=== PATIENT | male | born 1975 | race Caucasian/White ===

== ENCOUNTER 2023-09-04 11:15 | Emergency (ER) | payer SELFPAY ==
[2023-09-04] VITALS (31 sets, daily range): BP systolic 137–171; BP diastolic 88–101; PULSE 78–105; RESP 15–24; TEMP 36.7–36.9; O2SAT 93–100
--- NOTE | ~2023-09-04 | XR_ITS ---
EXAMINATION: XR chest 1V portable INDICATION: Chest pain TECHNIQUE: Portable AP chest at 1327 hours COMPARISON: None available FINDINGS: The lungs are free of acute opacities. No pleural effusion or pneumothorax. The cardiomedia stinal silhouette is normal. There are partially imaged surgical changes in the lower cervical spine. IMPRESSION: 1. No acute cardiopulmonary abnormality. Reviewed, dictated and finalized at location B. ING WHEEL OPERATOR HELPER
[2023-09-04 11:53] LABS: Basophils Percent Auto 0.6 % (0.2-1.2); Eosinophils Absolute Auto 0.6 K/mm3 (0-0.3); Hematocrit 38.3 % (42.0-52.0); Immature Granulocyte Absolute 0.04 K/mm3 (0.00-0.031); Immature Granulocyte Percent A 0.6 % (0-0.5); Lymphocytes Absolute Auto 0.56 K/mm3 (0.9-3.2); Lymphocytes Percent Auto 8.4 % (18.3-44.2); Mean Corpuscular HGB Conc 33.9 g/dl (32-36); Mean Corpuscular Hemoglobin 33.9 pg (26-34); Monocytes Absolute Auto 0.8 K/mm3 (0.1-0.6); Monocytes Percent Auto 11.4 % (2.6-8.5); Neutrophils Absolute Auto 4.7 K/mm3 (1.3-6.7); Platelet Count Result 152 k/mm3 (150-375); Red Blood Count 3.83 M/mm3 (4.6-6.20); Red Cell Distribution Width 12.3 % (11.5-14.5); White Blood Count 6.7 K/mm3 (4.5-10.0)
[2023-09-04 12:00] LABS: Appearance Urine Clear (Clear); Bacteria Urine None Seen /hpf; Bilirubin Urine Negative (Negative); Blood Urine 1+ (Negative); Color Urine Yellow (Yellow); Glucose Urine UA Negative (Negative); Ketones Urine 4+ mg/dL (Negative); Leukocyte Esterase Ur Negative LEU/UL (Negative); Nitrate Urine Negative (Negative); Non Pathogenic Casts 0-2; Protein Urine 2+ mg/dL (Negative); RBC Urine 0-2 /hpf (0-2); Specific Grav Ur 1.019 (1.001-1.035); Squamous Epithelial Cell Urine None seen /hpf (Few); WBC Urine 0-5 /hpf
[2023-09-04 12:09] LABS: Amphetamine Screen Urine Negative (Negative); Barbiturate Screen Urine Negative (Negative); Benzodiazepines Screen Urine Negative (Negative); Cannabinoid Screen Urine Negative (Negative); Cocaine Screen Urine Negative (Negative); Methadone Screen Urine Negative (Negative); Opiate Screen Urine Negative (Negative); Phencyclidine Screen Urine Negative (Negative)
[2023-09-04 12:10] LABS: Ethanol < 10 mg/dL (<10)
[2023-09-04 12:11] LABS: Add Urine Microscopic? YES
[2023-09-04 12:16] LABS: Albumin Level 5.3 g/dL (3.5-5.1); Alkaline Phosphatase 70 U/L (38-126); Anion Gap 24 mmol/L (8-16); Aspartate Amino Transferase 145 U/L (17-59); Bilirubin,Total 1.2 mg/dL (0.2-1.3); Blood Urea Nitrogen 5 mg/dL (9-20); Calcium 9.5 mg/dL (8.4-10.2); Carbon Dioxide 10 mmol/L (22-30); Chloride 98 mmol/L (98-107); Estimated CRCL calculation 120 ml/min; Estimated Glomerular Filt Rate > 60; Glucose 131 mg/dL (65-110); Potassium 3.6 mmol/L (3.4-5.0); Sodium 132 mmol/L (137-145)
[2023-09-04 12:17] LABS: Platelet Estimate Adequate (Adequate); Schistocytes None Seen (NORMAL)
[2023-09-04 12:40] LABS: Alanine Aminotransferase 62 U/L (6-50)
--- NOTE | 2023-09-04 13:11 | ECG_ITS ---
Measurements Intervals [place] Rate: 78 P: 68 MT: 164 QRS: 60 QRSD: 93 T: 51 QT: 385 QTc: 440 Interpretive Statements SINUS RHYTHM MODERATE VOLTAGE CRITERIA FOR LVH, CONSIDER NORMAL VARIANT [MEETS CRITERIA IN ONE OF: R(aVL), S(V1), R(V5), R(V5/V6)+S(V1)] BORDERLINE ECG NO PREVIOUS ECG AVAILABLE FOR COMPARISON Electronically Signed On 09-04-2023 18:32:19 [employer]UMENT CARVER by Pee Alvarado M.D.
--- NOTE | 2023-09-04 13:12 | ED.GENADULT ---
HPI - General Adult General Chief complaint: Unspecified Stated complaint: sick x months , ?ETOH/chest pain Time Seen by Provider: 09/04/23 12:00 History of Present Illness HPI narrative: Patient is a 48-year-old male presenting with chest pain. States that he developed central chest pain that he states felt pressure-like yesterday. States that he was just sitting on his couch. States that it has since gone away but he was concerned so he came in for evaluation. No shortness of breath, lightheadedness, leg swelling, diaphoresis. States that he does drink daily and his last drink was last night. He feels anxious and a little bit trembly. No nausea or vomiting. No infectious symptoms. No further complaints. Currently denies any pain. Related Data Allergies Allergy/AdvReac Type Severity Reaction Status Date / Time No Known Allergies Allergy Verified 09/04/23 11:28 Review of Systems Review of Systems: All systems reviewed & are unremarkable except as noted in HPI and below Exam Narrative: GENERAL: unkempt, nontoxic, no acute distress, pleasant cooperative, mildly tremulous HEAD: Normocephalic, atraumatic. EYES: PERRLA and EOMI. ENT: grossly unremarkable NECK: Supple. CHEST: Clear to auscultation. No respiratory distress. HEART: Regular rate and rhythm. No murmur heard. Normal peripheral pulses. ABDOMEN: Soft, nontender, nondistended EXTREMITIES: Normal range of motion. No edema. SKIN: Warm, dry, no rash. NEURO: No focal deficits. Alert and oriented x3. PSYCH: Normal mood and affect. Course Vital Signs Vital signs: Vital Signs Temperature 98.4 F 09/04/23 11:23 Pulse Rate 105 H 09/04/23 11:23 Respiratory Rate 24 H 09/04/23 11:23 Blood Pressure 171/96 H 09/04/23 11:23 Pulse Oximetry 97 09/04/23 11:23 Oxygen Delivery Room Air 09/04/23 11:23 Temperature 98.0 F 09/04/23 18:09 Pulse Rate 87 09/04/23 18:09 Respiratory Rate 20 09/04/23 18:09 Blood Pressure 152/92 H 09/04/23 18:09 Pulse Oximetry 97 09/04/23 18:09 Oxygen Delivery Room Air 09/04/23 11:23 Medical Decision Making MDM Narrative Medical decision making narrative: 48-year-old male presenting with chest pain since yesterday that has since resolved. Patient initially hypertensive and a bit tachycardic but this improved by the time I saw him. He is a bit tremulous on exam. Will give some fluids, Ativan, Librium. He denies any chest pain currently. EKG per my interpretation shows normal sinus rhythm, no ST elevations or depressions. Chest x-ray without acute findings. Troponins within normal limits x2. Blood work without significant abnormality. Patient continues to deny any chest pain or shortness of breath. Patient feeling improved following Librium. He feels comfortable going home. Will send in for a Librium taper advised following up with chestnut and PCP. Appropriate return precautions given. Patient is agreeable with this plan. Discharged in stable condition. Differential Diagnosis Differential Diagnosis: Chest pain, alcohol withdrawal, alcohol use disorder Medical Records Medical records reviewed: Yes I reviewed the external patient's medical records. Vital Signs Vital Signs: Vital Signs Temperature 98.4 F 09/04/23 11:23 Pulse Rate 105 H 09/04/23 11:23 Respiratory Rate 24 H 09/04/23 11:23 Blood Pressure 171/96 H 09/04/23 11:23 Pulse Oximetry 97 09/04/23 11:23 Oxygen Delivery Room Air 09/04/23 11:23 Temperature 98.0 F 09/04/23 18:09 Pulse Rate 87 09/04/23 18:09 Respiratory Rate 20 09/04/23 18:09 Blood Pressure 152/92 H 09/04/23 18:09 Pulse Oximetry 97 09/04/23 18:09 Oxygen Delivery Room Air 09/04/23 11:23 Lab Data Lab results reviewed: Yes I reviewed the patient's lab results. 09/04/23 11:38 09/04/23 11:38 Labs: Lab Results 09/04/23 09/04/23 Range/Units 11:38 16:28 WBC 6.7 (4.5-10.0) K/mm
[2023-09-04] MEDS: LORazepam INJ (*CRX) 2 MG/ML VIAL 1 MG IV PUSH (13:30)
[2023-09-04] MEDS: chlordiazePOXIDE (*CRX) 25 MG CAPSULE PO (13:30)
[2023-09-04] MEDS: SODIUM CHLORIDE 0.9% IV 1,000 ML 999 ML IV CONT (13:30)
[2023-09-04 13:50] LABS: Lipase 168 U/L (23-300)
[2023-09-04 14:03] LABS: Glucose Point of Care 153 mg/dl (65-105); Troponin I < 0.012 ng/mL (0.000-0.034)
--- NOTE | 2023-09-04 16:56 | ECG_ITS ---
Measurements Intervals [place] Rate: 79 P: 62 UT: 174 QRS: 65 QRSD: 90 T: 56 QT: 375 QTc: 431 Interpretive Statements SINUS RHYTHM MINIMAL VOLTAGE CRITERIA FOR LVH, CONSIDER NORMAL VARIANT [MEETS CRITERIA IN ONE OF: R(aVL), S(V1), R(V5), R(V5/V6)+S(V1)] BORDERLINE ECG COMPARED TO ECG 09/04/2023 13:39:42 NO SIGNIFICANT CHANGES Electronically Signed On 09-04-2023 18:40:52 OCCUPATIONAL HEALTH AND SAFETY MANAGER by Pee Alvarado M.D.
[2023-09-04 17:00] LABS: Troponin I 0.018 ng/mL (0.000-0.034)
== END 2023-09-04 18:11 | disposition home or self-care (01) ==
PROVIDERS: Emergency Medicine; Emergency Provider Emergency Medicine
DX: R07.89 Other chest pain (principal); F10.239 Alcohol dependence with withdrawal, unspecified; Y90.0 Blood alcohol level of less than 20 mg/100 ml
CPT/HCPCS: 36415; 71045; 80053; 80307; 81001; 82948; 83690; 84443; 84484; 85025; 93005; 96361; 96374; 99284; A9270; J2060; J7030

== ENCOUNTER 2024-05-19 11:27 | Emergency (ER) | payer SELFPAY ==
--- NOTE | ~2024-05-19 | XR_ITS ---
Clinical Indication: Syncope PA and lateral views of the chest: Comparison: 09/04/2023 Findings: The lungs are clear, without evidence of focal consolidation or pleural effusion. Cardiome diastinal silhouette is within normal limits. Bones and soft tissues are unremarkable. Impression: Normal chest. Reviewed, dictated and finalized at location . ANALYST Impression: Normal chest.
[2024-05-19 11:19] VITALS: BP 149/108; PULSE 111; RESP 15; TEMP 37.1; O2SAT 98
[2024-05-19 11:30] VITALS: BP 160/118; PULSE 118; RESP 21; O2SAT 98
--- NOTE | 2024-05-19 11:30 | ECG_ITS ---
Test Date: 2024-05-19 11:33:39 Measurements Intervals [place] Rate: 107 P: 54 DE: 159 QRS: 56 QRSD: 88 T: 58 QT: 328 QTc: 439 Interpretive Statements SINUS TACHYCARDIA POSSIBLE LEFT ATRIAL ENLARGEMENT MINIMAL Q WAVES- INFERIOR LEADS BASELINE ARTIFACT- I, II, III, AVR, AVL, AVF ABNORMAL ECG No previous ECG available for comparison Electronically Signed On 05-19-2024 18:33:58 [employer]URNER by Steve Barreto D.O.
[2024-05-19 11:32] VITALS: BP 149/108; PULSE 113; RESP 14; O2SAT 98
[2024-05-19 11:47] VITALS: BP 153/106; PULSE 111; RESP 20; O2SAT 98
[2024-05-19 12:08] VITALS: PULSE 102
[2024-05-19 12:55] LABS: Basophils Percent Auto 0.4 % (0.2-1.2); Eosinophils Percent Auto 0.1 % (0-4.4); Hematocrit 39.2 % (42.0-52.0); Hemoglobin 14.1 g/dL (14.0-18.0); Immature Granulocyte Absolute 0.03 K/mm3 (0.00-0.031); Immature Granulocyte Percent A 0.4 % (0-0.5); Immature Platelet Fraction Pct 6.4 % (0.9-11.2); Lymphocytes Absolute Auto 0.54 K/mm3 (0.9-3.2); Lymphocytes Percent Auto 7.4 % (18.3-44.2); Mean Corpuscular Hemoglobin 35.3 pg (26-34); Mean Corpuscular Volume 98.2 fl (80-100); Mean Platelet Volume 10.4 fl (7.4-10.4); Monocytes Absolute Auto 0.9 K/mm3 (0.1-0.6); Neutrophils Absolute Auto 5.8 K/mm3 (1.3-6.7); Neutrophils Percent Auto 79.7 % (45.5-73.1); Platelet Count Result 154 k/mm3 (150-375); Red Blood Count 3.99 M/mm3 (4.6-6.20); Red Cell Distribution Width 11.9 % (11.5-14.5); White Blood Count 7.3 K/mm3 (4.5-10.0)
[2024-05-19 12:58] LABS: Add Urine Microscopic? YES; Appearance Urine Clear (Clear); Bacteria Urine None Seen /hpf; Bilirubin Urine Negative (Negative); Blood Urine Negative (Negative); Color Urine Yellow (Yellow); Glucose Urine UA Negative (Negative); Ketones Urine 1+ mg/dL (Negative); Leukocyte Esterase Ur Trace LEU/UL (Negative); Nitrate Urine Negative (Negative); Non Pathogenic Casts 0-2; Protein Urine 2+ mg/dL (Negative); RBC Urine 0-2 /hpf (0-2); Specific Grav Ur 1.016 (1.001-1.035); Squamous Epithelial Cell Urine None Seen /hpf (Few); pH Urine 6.5 (5.0-9.0)
[2024-05-19 13:05] LABS: Alanine Aminotransferase 137 U/L (6-50); Albumin Level 4.7 g/dL (3.5-5.1); Alkaline Phosphatase 85 U/L (38-126); Anion Gap 10 mmol/L (4-12); Aspartate Amino Transferase 315 U/L (17-59); Bilirubin,Total 0.8 mg/dL (0.2-1.3); Blood Urea Nitrogen 9 mg/dL (9-20); Calcium 9.5 mg/dL (8.4-10.2); Carbon Dioxide 22 mmol/L (22-30); Chloride 103 mmol/L (98-107); Estimated CRCL calculation 114 ml/min; Estimated Glomerular Filt Rate > 60; Glucose 118 mg/dL (65-110); Magnesium 1.9 mg/dL (1.6-2.3); Sodium 135 mmol/L (137-145)
[2024-05-19 13:15] LABS: Troponin I < 0.012 ng/mL (0.000-0.034)
--- NOTE | 2024-05-19 13:26 | ED.GENADULT ---
HPI - General Adult General Chief complaint: Syncope Stated complaint: syncopy Time Seen by Provider: 05/19/24 11:44 History of Present Illness HPI narrative: patient is a 49-year-old gentleman presents emergency department with chief complaint of syncopal episode. Patient reports that he has not been sleeping and reports has been drinking a lot a caffeine patient states that he got up felt lightheaded and fell to the ground the patient reports no seizure-like activity denies bowel or bladder incontinence the patient reports he just feels anxious patient denies chest pain denies shortness of breath Related Data Allergies Allergy/AdvReac Type Severity Reaction Status Date / Time No Known Allergies Allergy Verified 05/19/24 11:36 Review of Systems Review of Systems: A 10 system review of systems was completed on the patient and is negative except for what is stated in the HPI. Nursing and ancillary documentation was reviewed. Exam Narrative: GENERAL: Well-appearing, well-nourished, and in no acute distress. HEAD: Normocephalic, atraumatic. EYES: PERRLA and EOMI. ENT: Nares clear, no rhinorrhea or epistaxis. Mucous membranes moist. NECK: Supple. CHEST: Clear to auscultation. No respiratory distress. HEART: Regular rate and rhythm. No murmur heard. Normal peripheral pulses. ABDOMEN: Soft, nontender, nondistended, normal active bowel sounds. EXTREMITIES: Normal range of motion. No edema. SKIN: Warm, dry, no rash. NEURO: No focal deficits. Alert and oriented x3. PSYCH: Normal mood and affect. Course Vital Signs Vital signs: Vital Signs Temperature 37.1 C 05/19/24 11:19 Pulse Rate 111 H 05/19/24 11:19 Respiratory Rate 15 05/19/24 11:19 Blood Pressure 149/108 H 05/19/24 11:19 Pulse Oximetry 98 05/19/24 11:19 Oxygen Delivery Room Air 05/19/24 11:19 Temperature 37.1 C 05/19/24 11:19 Pulse Rate 89 05/19/24 13:40 Respiratory Rate 16 05/19/24 13:40 Blood Pressure 127/92 H 05/19/24 13:40 Pulse Oximetry 100 05/19/24 13:40 Oxygen Delivery Room Air 05/19/24 11:19 Medical Decision Making MDM Narrative Medical decision making narrative: differential diagnosis includes vasovagal syncope, cardiogenic syncope, electrolyte abnormality, dehydration, laboratory studies were obtained on the patient showed a CBC with a white count of 7.3 hemoglobin is 14.1 electrolytes showed a potassium of 4.0 normal renal function liver enzymes were slightly elevated the patient does have prior history of elevated liver enzymes bilirubin was normal at 0.8 troponin is negative urinalysis showed 1+ ketones and 6-10 white blood cells but no evidence of bacteria negative nitrate chest x-ray showed no focal infiltrate EKG showed no acute ischemic changes, no dysrhythmia Vital Signs Vital Signs: Vital Signs Temperature 37.1 C 05/19/24 11:19 Pulse Rate 111 H 05/19/24 11:19 Respiratory Rate 15 05/19/24 11:19 Blood Pressure 149/108 H 05/19/24 11:19 Pulse Oximetry 98 05/19/24 11:19 Oxygen Delivery Room Air 05/19/24 11:19 Temperature 37.1 C 05/19/24 11:19 Pulse Rate 89 05/19/24 13:40 Respiratory Rate 16 05/19/24 13:40 Blood Pressure 127/92 H 05/19/24 13:40 Pulse Oximetry 100 05/19/24 13:40 Oxygen Delivery Room Air 05/19/24 11:19 Lab Data 05/19/24 12:47 05/19/24 12:47 Labs: Lab Results 05/19/24 Range/Units 12:47 WBC 7.3 (4.5-10.0) K/mm3 RBC 3.99 L (4.6-6.20) M/mm3 Hgb 14.1 (14.0-18.0) g/dL Hct 39.2 L (42.0-52.0) % MCV 98.2 (80-100) fl MCH 35.3 H (26-34) pg MCHC 36.0 (32-36) g/dl RDW 11.9 (11.5-14.5) % Plt Count 154 (150-375) k/mm3 MPV 10.4 (7.4-10.4) fl Immature Gran % (Auto) 0.4 (0-0.5) % Neut % (Auto) 79.7 H (45.5-73.1) % Lymph % (Auto) 7.4 L (18.3-44.2) % [place] % (Auto) 12.0 H (2.6-8.5) % Eos % (Auto) 0.1 (0-4.4) % Baso % (Auto) 0.4 (0.2-1.2) % Lymph # (Auto) 0.54 L (0.9-3.2) K/mm3 [place] # (Auto) 0.9 H (0.1-0.6) K/mm3 Eos # (Auto) 0.0 (0-0.3) K/mm3 Baso # (Auto) 0.0 (0.0-0.1) K/mm3 Abs Immat Gran (auto) 0.03 (0.00-0.031) K/mm3 Absolute Neuts (auto) 5.8 (1.3-6.7) K/mm3 Absolute Nucleated RBC 0.000 (0.0-0.012) K/mm3 Nucleated RBC % 0.0 (0.0-0.2) % % Immature Plt Fraction 6.4 (0.9-11.2) % Sodium 135 L (137-145) mmol/L Potassium 4.0 (3.4-5.0) mmol/L Chloride 103 (98-107) mmol/L Carbon Dioxide 22 (22-30) mmol/L Anion Gap 10 (4-12) mmol/L BUN 9 (9-20) mg/dL Creatinine 0.70 (0.7-1.3) mg/dL Estim Creat Clear Calc 114 ml/min Estimated GFR > 60 (59 - ) Glucose 118 H (65-110) mg/dL Calcium 9.5 (8.4-10.2) mg/dL Magnesium 1.9 (1.6-2.3) mg/dL Total Bilirubin 0.8 (0.2-1.3) mg/dL AST 315 H (17-59) U/L ALT 137 H (6-50) U/L Alkaline Phosphatase 85 (38-126) U/L Troponin I < 0.012 (0.000-0.034) ng/mL Total Protein 8.0 (6.3-8.2) g/dL Albumin 4.7 (3.5-5.1) g/dL Urine Color Yellow (Yellow) Urine Appearance Clear (Clear) Urine pH 6.5 (5.0-9.0) Ur Specific [place] 1.016 (1.001-1.035) Urine Protein 2+ H (Negative) mg/dL Urine Glucose (UA) Negative (Negative) mg/dL Urine Ketones 1+ H (Negative) mg/dL Ur Blood (Man) Negative (Negative) Urine Nitrate Negative (Negative) Urine Bilirubin Negative (Negative) Urine Urobilinogen 1.0 (<2.0) mg/dL Leukocyte Esterase Rfl Trace H (Negative) MELECIO/UL Urine RBC 0-2 (0-2) /hpf Urine WBC 6-10 H (0-3) /hpf Ur Squamous Epith Cells None seen (Few) /hpf Urine Bacteria None seen /hpf Urine Casts 0-2 Discharge Plan Discharge Clinical Impression: Vasovagal syncope Patient Disposition: Home, Self-Care Condition: Stable Instructions: Antibiotic Form, Syncope (ED) Prescriptions: No Action chlordiazepoxide HCl 25 mg capsule 25 mg PO Q8H Qty: 20 0RF Rx Instructions: Day 1: Oral: 50 mg every 6 hours. Day 2: Oral: 50 mg every 8 hours. Day 3: Oral: 50 mg every 12 hours. Day 4: Oral: 25 mg every 12 hours, then discontinue chlordiazepoxide Follow-up/Referrals: PHYSICIAN,REAL ESTATE FIRM MANAGER [Primary Care Provider] - Levon Pickens MD [Physician] - Time of Disposition: 13:29
[2024-05-19 13:40] VITALS: BP 127/92; PULSE 89; RESP 16; O2SAT 100
== END 2024-05-19 14:02 | disposition home or self-care (01) ==
PROVIDERS: Emergency Medicine; Emergency Provider Emergency Medicine
DX: R55 Syncope and collapse (principal); R94.31 Abnormal electrocardiogram [ECG] [EKG]; R00.0 Tachycardia, unspecified
CPT/HCPCS: 36415; 71046; 80053; 81001; 83735; 84484; 85025; 85055; 87086; 93005; 99284

== ENCOUNTER 2025-04-02 20:12 | Emergency (ER) | payer OTHER, SELFPAY ==
--- NOTE | ~2025-04-02 | CT_ITS ---
EXAMINATION: CT BRAIN W/O DATE: 04/02/2025 21:17 INDICATION: Seizure TECHNIQUE: Computed tomography (CT) of the head was performed without intravenous contrast. The dose-length product was 756.67 mGy-cm. Automated exposure control and iterative reconstruction technique were employed. COMPARISON: No prior studies for comparison. FINDINGS: Normal brain parenchymal volume for age. Normal mosqueda-white differentiation. No acute intracranial hemorrhage, infarction, mass or mass effect. No ventriculomegaly or midline shift. Midline sagittal images demonstrate a normal corpus callosum, craniovertebral junction and sella turcica. Basilar cisterns are patent. There is mild mucosal thickening of the maxillary sinuses. Mastoids are pneumatized. No depressed skull fractures. IMPRESSION: 1. No acute intracranial abnormality. Reviewed, dictated and finalized at location O.
[2025-04-02 20:17] VITALS: BP 152/100; PULSE 105; RESP 21; TEMP 37; O2SAT 100
[2025-04-02 21:00] VITALS: O2SAT 100
[2025-04-02 21:01] VITALS: BP 123/58; PULSE 99; RESP 18; O2SAT 100
--- NOTE | 2025-04-02 21:32 | ED_ITS ---
HPI - Seizure General Chief Complaint: Seizure Stated Complaint: SEIZURE W/ HEAD INJURY Time Seen by Provider: 04/02/25 20:14 History of Present Illness HPI Narrative: Patient is a 50-year-old male who presents to the ER after having a seizure. He reports his roommate thought he stopped breathing so he called EMS. Patient endorses loss of consciousness but reports he regained consciousness once there were lots of lights and people around me. He reports he has a history of seizures but is not on seizure medication. Patient denies any pain at time of examination. He reports he drinks alcohol daily. Patient had a abstain from alcohol use for approximately 4 days and then had 2-3 drinks around 1:00 p.m. today. Related Data Allergies Allergy/AdvReac Type Severity Reaction Status Date / Time No Known Allergies Allergy Verified 05/19/24 11:36 Review of Systems 2 Review of Systems: All systems reviewed & are unremarkable except as noted in HPI and below Exam 2 Narrative: GENERAL: Ill appearing, well-nourished, non-toxic, in no acute distress. HEAD: Normocephalic, atraumatic. NECK: Supple. No adenopathy, no masses. RESPIRATORY: Airway patent, respirations nonlabored. Clear to auscultation bilaterally, no rales, rhonchi, wheezing. CARDIOVASCULAR: Regular rate and rhythm without murmurs, rubs, or gallops. Peripheral pulses 2+ and equal bilaterally. ABDOMINAL: Soft, nontender, nondistended, no hepatosplenomegaly. Normoactive BS. MUSCULOSKELETAL: Moves all extremities. Strength/ROM intact without gross deformities. SKIN: Warm, dry, normal color. No rashes. NEURO: A&O X3. Speech clear. Cranial nerves II-XII intact. No ataxic movements. PSYCHIATRIC: Appropriate mood and affect. Normal interaction. CIWA score=0 Course Vital Signs Vital signs: Vital Signs Temperature 37.0 C 04/02/25 20:17 Pulse Rate 105 H 04/02/25 20:17 Respiratory Rate 21 H 04/02/25 20:17 Blood Pressure 152/100 H 04/02/25 20:17 Pulse Oximetry 100 04/02/25 20:17 Oxygen Delivery Room Air 04/02/25 20:17 Temperature 37.0 C 04/02/25 20:17 Pulse Rate 99 04/02/25 21:01 Respiratory Rate 18 04/02/25 21:01 Blood Pressure 123/58 L 04/02/25 21:01 Pulse Oximetry 100 04/02/25 21:01 Oxygen Delivery Room Air 04/02/25 21:00 MDM - Seizure MDM Narrative Medical decision making narrative: Patient is a 50-year-old male who presents to the ER after having a seizure. He reports his roommate thought he stopped breathing so he called EMS. Patient endorses loss of consciousness but reports he regained consciousness once there were lots of lights and people around me. He reports he has a history of alcohol withdrawal seizures but is not on seizure medication. Patient denies any pain at time of examination. He reports he drinks alcohol daily. Patient had abstained from alcohol use for approximately 4 days prior to today and then had 2-3 drinks around 1:00 p.m. today. Labs Ordered: CBC, CMP, ethanol, magnesium, vitamin B12, folic acid, lactic acid, phosphorus Imaging Ordered: CT brain Medications Ordered: 1 L normal saline IV bolus, Zofran 4 mg IV, Librium 50 mg p.o., thiamine 100 mg IV, folic acid 1 mg IV Results: Patient's CBC indicates a red blood cell count of 4.59. His CMP indicates a sodium of 134, carbon dioxide of 18, anion gap of 18, AST of 119, ALT of 52, total protein of 10.0, albumin of 5.4. Patient's lactic acid was 5.9. His phosphorus was 2.2 and magnesium was 2.0. Patient's alcohol level was less than 10 upon arrival. His repeat lactic acide was 1.0. Diagnosis: Alcohol Withdrawal, Seizure Risks: Prediction of Alcohol Withdrawal Prediction of Alcohol Withdrawal Severity Scale from [id number] on 04/02/2025 All calculations should be rechecked by clinician prior to use RESULT SUMMARY: 2 points PAWSS Average risk Likelihood ratio 0.07 for complicated VIOLETTA (withdrawal hallucinosis, withdrawal- related seizures, or delirium tremens) INPUTS: Patient consumed any amount of alcohol within the last 30 days OR patient had a positive blood alcohol level upon admission ?> 1 = Yes Have you been recently intoxicated or drunk within the last 30 days? ?> 1 = Yes Have you ever experienced previous episodes of alcohol withdrawal? ?> 0 = No Have you ever experienced withdrawal seizures? ?> 1 = Yes Have you ever experienced delirium tremens (DTs)? ?> 0 = No Have you ever undergone alcohol rehabilitation treatment (i.e., inpatient or outpatient treatment programs, or Alcoholics Anonymous attendance)? ?> 0 = No Have you ever experienced blackouts? ?> 0 = No Have you combined alcohol with other ?downers? (e.g. benzodiazepines, barbiturates) during the last 90 days? ?> 0 = No Have you combined alcohol with any other substance of abuse during the last 90 days? ?> 0 = No Positive blood alcohol level (BAL) on presentation ?> 0 = No Evidence of increased autonomic activity (i.e., HR >120, tremor, sweating, agitation, nausea) ?> 0 = No Patient Education/Shared MDM: Extensive discussion between INTERNATIONAL MANAGER and patient was had regarding patient's request for discharge. INTERNATIONAL MANAGER recommended pt be admitted to the hospital for further evaluation but patient would like to be discharged home. It was explained to patient that he most likely did have a seizure prior to arrival, as his lactic acid was elevated. Pt was observed for approximately five hours in the ER following his arrival and continued to have a negative CIWA score. Results of other lab work shared with patient. He endorses improvement of symptoms and denies experiencing any other abnormal neurological symptoms while in the emergency department. Patient is alert and oriented x4. Patient strongly advised to maintain hydration status upon discharge and follow- up with his PCP as soon as possible. He reports he does not currently have a neurologist so patient will be referred. Patient reports he is interested discontinuing alcohol use, but he reports he does not need any resources at this time. He will be discharged home with a prescription for Librium, which he has taken in the past. Strict return precautions provided. Patient assured INTERNATIONAL MANAGER that he would follow up with primary care and Neurology as soon as possible. All your extensive discussion, patient verbalized understanding and is in agreement with plan. Vital signs stable at time of discharge. All questions answered. Differential Diagnosis Differential diagnosis: Likely intractable seizure disorder, focal seizure, generalized seizure and other (Alcohol withdrawal, alcohol withdrawal seizure, alcohol intoxication) Lab Data Attestation: I reviewed the patient's lab results. 04/02/25 21:36 04/02/25 21:36 Labs: Lab Results 04/02/25 04/03/25 Range/Units 21:36 00:17 WBC 9.4 (4.5-10.0) K/mm3 RBC 4.59 L (4.6-6.20) M/mm3 Hgb 15.5 (14.0-18.0) g/dL Hct 43.9 (42.0-52.0) % MCV 95.6 (80-100) fl MCH 33.8 (26-34) pg MCHC 35.3 (32-36) g/dl RDW 12.3 (11.5-14.5) % Plt Count 186 (150-375) k/mm3 MPV 10.1 (7.4-10.4) fl Immature Gran % (Auto) 0.5 (0-0.5) % Neut % (Auto) 81.1 H (45.5-73.1) % Lymph % (Auto) 8.0 L (18.3-44.2) % [place] % (Auto) 10.0 H (2.6-8.5) % Eos % (Auto) 0.2 (0-4.4) % Baso % (Auto) 0.2 (0.2-1.2) % Lymph # (Auto) 0.75 L (0.9-3.2) K/mm3 [place] # (Auto) 0.9 H (0.1-0.6) K/mm3 Eos # (Auto) 0.0 (0-0.3) K/mm3 Baso # (Auto) 0.0 (0.0-0.1) K/mm3 Abs Immat Gran (auto) 0.05 H (0.00-0.031) K/mm3 Absolute Neuts (auto) 7.6 H (1.3-6.7) K/mm3 Absolute Nucleated RBC 0.000 (0.0-0.012) K/mm3 Nucleated RBC % 0.0 (0.0-0.2) % Sodium 134 L (137-145) mmol/L Potassium 3.4 (3.4-5.0) mmol/L Chloride 98 (98-107) mmol/L Carbon Dioxide 18 L (22-30) mmol/L Anion Gap 18 H (4-12) mmol/L BUN 9 (9-20) mg/dL Creatinine 0.82 (0.7-1.3) mg/dL Estim Creat Clear Calc 98 ml/min Estimated GFR > 60 (59 - ) Glucose 109 (65-110) mg/dL Lactic Acid 5.9 H* 1.0 (0.7-2.0) mmol/L Calcium 9.8 (8.4-10.2) mg/dL Phosphorus 2.2 L (2.5-4.5) mg/dL Magnesium 2.0 (1.6-2.3) mg/dL Total Bilirubin 1.0 (0.2-1.3) mg/dL AST 119 H (17-59) U/L ALT 52 H (6-50) U/L Alkaline Phosphatase 82 (38-126) U/L Total Protein 10.0 H (6.3-8.2) g/dL Albumin 5.4 H (3.5-5.1) g/dL Vitamin B12 495.0 (239-931) pg/mL Folate 5.2 (2.76->20) ng/mL Ethyl Alcohol < 10 (<10) mg/dL Imaging Data Attestation: I personally reviewed and interpreted this imaging study as follows: Radiologist's impression: Impressions Head CT 04/02/25 21:18 IMPRESSION: 1. No acute intracranial abnormality. Discharge Plan Discharge Clinical Impression: Alcohol withdrawal seizure, History of alcohol abuse, History of seizure due to alcohol withdrawal Patient Disposition: Home Condition: Guarded Prognosis Instructions: Antibiotic Form, Alcohol Withdrawal (ED) Additional Instructions: Please return to the ER with any worsening symptoms. Follow-up with primary care provider, Neurology and outpatient addiction services as soon as possible. Take all medications as prescribed, including regularly scheduled medications. Please do not drink alcohol while taking Librium. Patient Language: Bengali Prescriptions: New chlordiazepoxide HCl 25 mg capsule See Rx Instructions .ROUTE .COMPLEX PRN (Reason: alcohol withdrawal) Qty: 20 0RF Rx Instructions: 25 mg orally as needed ;Day 1: Oral: 50mg every 6 hours.Day 2: Oral: 50mg every 8 hours.Day 3: Oral: 50mg every 12 hours.Day 4: Oral: 25 mg every 12 hours, then discontinue chlordiazepoxide. No Action chlordiazepoxide HCl 25 mg capsule 25 mg PO Q8H Qty: 20 0RF Rx Instructions: Day 1: Oral: 50 mg every 6 hours. Day 2: Oral: 50 mg every 8 hours. Day 3: Oral: 50 mg every 12 hours. Day 4: Oral: 25 mg every 12 hours, then discontinue chlordiazepoxide Follow-up/Referrals: Stuart Romero MD [Physician, Neurology] Referral Note: neurology PHYSICIAN,ELECTRICAL PRODUCTS SALES ENGINEER [Primary Care Provider, Internal Medicine] Levon Pickens MD [Physician, Family Practice] Referral Note: primary care provider
[2025-04-02 21:42] LABS: Hematocrit 43.9 % (42.0-52.0); Hemoglobin 15.5 g/dL (14.0-18.0); Immature Granulocyte Percent A 0.5 % (0-0.5); Lymphocytes Absolute Auto 0.75 K/mm3 (0.9-3.2); Mean Corpuscular HGB Conc 35.3 g/dl (32-36); Mean Corpuscular Hemoglobin 33.8 pg (26-34); Mean Corpuscular Volume 95.6 fl (80-100); Nucleated Red Blood Cells Absolute Auto 0.000 K/mm3 (0.0-0.012); Nucleated Red Blood Cells Perc 0.0 % (0.0-0.2); Platelet Count Result 186 k/mm3 (150-375); Red Blood Count 4.59 M/mm3 (4.6-6.20); White Blood Count 9.4 K/mm3 (4.5-10.0)
[2025-04-02] MEDS: FOLIC ACID 1 MG/0.2 ML INJ IV PUSH (21:47)
[2025-04-02] MEDS: THIAMINE HCL 200 MG/2 ML VIAL 100 MG IV PUSH (21:47)
[2025-04-02] MEDS: SODIUM CHLORIDE 0.9% IV 1,000 ML 999 ML IV CONT (21:47)
[2025-04-02 22:56] LABS: Alanine Aminotransferase 52 U/L (6-50); Albumin Level 5.4 g/dL (3.5-5.1); Alkaline Phosphatase 82 U/L (38-126); Anion Gap 18 mmol/L (4-12); Aspartate Amino Transferase 119 U/L (17-59); Bilirubin,Total 1.0 mg/dL (0.2-1.3); Blood Urea Nitrogen 9 mg/dL (9-20); Calcium 9.8 mg/dL (8.4-10.2); Carbon Dioxide 18 mmol/L (22-30); Chloride 98 mmol/L (98-107); Estimated CRCL calculation 98 ml/min; Estimated Glomerular Filt Rate > 60; Glucose 109 mg/dL (65-110); Magnesium 2.0 mg/dL (1.6-2.3); Potassium 3.4 mmol/L (3.4-5.0); Sodium 134 mmol/L (137-145); Total Protein 10.0 g/dL (6.3-8.2)
[2025-04-03] MEDS: chlordiazePOXIDE (*CRX) 25 MG CAPSULE 50 MG PO (00:03)
[2025-04-03] MEDS: POTASSIUM/PHOSPHORUS/SODIUM 1.5 GM PACKET 1 PACKET PO (00:03)
[2025-04-03 00:32] LABS: Vitamin B12 495.0 pg/mL (239-931)
== END 2025-04-03 01:43 | disposition home or self-care (01) ==
PROVIDERS: Emergency Provider Registered Nurse
DX: F10.139 Alcohol abuse with withdrawal, unspecified (principal); R56.9 Unspecified convulsions; Y90.0 Blood alcohol level of less than 20 mg/100 ml
CPT/HCPCS: 36415; 70450; 80053; 82077; 82607; 82746; 83605; 83735; 84100; 85025; 96361; 96374; 96375; 99284; A9270; J3411; J7030